=== PATIENT | male | born 1945 | race Caucasian/White ===

== ENCOUNTER → 2016-10-18 | Outpatient (CLI) | payer MEDICARE, OTHER ==
--- NOTE | 2016-10-18 11:16 | RADRPT ---
EXAM DATE/TIME: 10/18/2016 00:00 [place] COMPARISON: No previous studies available for comparison. INDICATIONS : Dysphagia FLUORO TIME: 2.5 minutes IMAGE COUNT: 0 CONTRAST: Dose as prescribed by speech pathologist. MEDICAL HISTORY : None. SURGICAL HISTORY : None. ENCOUNTER: Initial ACUITY: 1 day PAIN SCORE: Non-responsive. LOCATION: Bilateral esophagus FINDINGS: A modified barium swallow was performed with speech pathology. Patient was given a variety of liquids to swallow. Normal swallowing mechanism. No visualized aspiration. For a full detailed report, see report by the speech pathologist. CONCLUSION: Unremarkable exam. No visualized aspiration. Sapna Gipson MD on October 18, 2016 at 11:14 Board Certified Radiologist. This report was verified electronically.
== END ==
LOC: EDBD 10:00 → HRAD 10:02
PROVIDERS: ATTEND Family Medicine Geriatric Medicine
DX: R13.10 Dysphagia, unspecified (principal)
CPT/HCPCS: 74230; 92611; G8996; G8997; G8998

== ENCOUNTER 2017-09-14 20:36 | Emergency (ER) | payer MEDICARE, OTHER ==
[~2017-09-14] VITALS: Ht 193 cm; Wt 75.0 kg
[2017-09-14 20:38] VITALS: BP 132/75; PULSE 74; RESP 16; TEMP 96.7; O2SAT 99
--- NOTE | 2017-09-14 21:53 | PD ---
HPI Chief Complaint: Junior Linux Administrator Problem Time Seen by Provider: 21:43 Travel History International Travel<30 days: No Contact w/Intl Traveler<30days: No Traveled to known affect area: No History of Present Illness HPI 72-year-old male with history of MR, seizures, type 2 diabetes, dementia, schizophrenia, here from his [facility] because his G-tube was accidentally removed. The patient is unable to provide any history. The credit and collections representative from the [facility]ci does not know when the tube was placed or what size tube it is. Patient is able to eat and drink, however he receives his medications through the PEG tube. The tube was accidentally removed at approximately 7:00 PM. [facility] Social History Tobacco Use: No Allergies-Medications (Allergen,Severity, Reaction): Coded Allergies: penicillin V (Verified Allergy, Severe, Anaphylaxis, 09/14/17) Review of Systems Except as stated in HPI: all other systems reviewed are Neg Physical Exam Narrative GENERAL: Well-developed, well-nourished, awake, calm, ambulated from triage to exam room using a walker SKIN: Focused skin assessment warm/dry. Left upper abdomen with PEG fistula without tube in place, without surrounding warmth or erythema. GASTROINTESTINAL: Skin exam as above. Abdomen soft, non-tender, nondistended. NEUROLOGICAL: Awake and alert. No obvious cranial nerve deficits. Motor grossly within normal limits. Normal speech. Data Data Last Documented VS Vital Signs Date Time Temp Pulse Resp B/P (MAP) Pulse Ox O2 Delivery O2 Flow Rate FiO2 09/14/17 23:11 09/14/17 21:56 18 Room Air 09/14/17 20:38 96.7 74 99 Orders Orders Ed Discharge Order (09/14/17 22:02) [facility] Medical Decision Making Medical Screen Exam Complete: Yes Emergency Medical Condition: Yes Differential Diagnosis Dislodged PEG tube Narrative Course 18 Pakistani PEG tube was used for replacement and passed easily through the fistula. Gastric contents were aspirated. See procedure note. Patient is stable for discharge back to his [facility]. Procedures Procedure Narrative PEG tube replacement: 18 [place] PEG tube was placed at site of previous PEG tube fistula in the left upper abdomen. The tube went in easily without any resistance. Gastric contents were aspirated. Tolerated well. No complications. Diagnosis Primary Impression: Dislodged gastrostomy tube Referrals: Primary Care Physician 3 days Disposition: 03 DISCHARGE TO SNF Condition: Stable Jeffrey Hinojosa MD Sep 14, 2017 21:53
== END 2017-09-14 23:13 ==
LOC: NEPD 20:36
DX: Z43.1 Encounter for attention to gastrostomy (principal); F79 Unspecified intellectual disabilities; R56.9 Unspecified convulsions; E11.9 Type 2 diabetes mellitus without complications; F03.90 Unspecified dementia, unspecified severity, without behavioral disturbance, psychotic disturbance, mood disturbance, and anxiety; F20.9 Schizophrenia, unspecified; Z88.0 Allergy status to penicillin
CPT/HCPCS: 49452